=== PATIENT | male | born 1980 | race Two or more races ===

== ENCOUNTER → 2017-03-15 | Outpatient (CLI) | payer BC | END | disposition home or self-care (01) | LOC: HKI 14:24 | DX: M25.561 Pain in right knee (principal); M25.461 Effusion, right knee | CPT/HCPCS: 20610; 73564-50 ==

== ENCOUNTER → 2017-03-22 | Outpatient (CLI) | payer BC | END | disposition home or self-care (01) | LOC: HKI 13:15 | DX: M25.561 Pain in right knee (principal); R22.41 Localized swelling, mass and lump, right lower limb | CPT/HCPCS: G0463 ==

== ENCOUNTER → 2017-04-21 | Outpatient (CLI) | payer BC | END | disposition home or self-care (01) | LOC: HKI 14:37 | DX: S83.241A Other tear of medial meniscus, current injury, right knee, initial encounter (principal); X58.XXXA Exposure to other specified factors, initial encounter; Y92.89 Other specified places as the place of occurrence of the external cause; M25.561 Pain in right knee ==

== ENCOUNTER → 2017-05-05 | Outpatient (CLI) | payer BC | END | disposition home or self-care (01) | LOC: HKI 14:16 | DX: Z01.818 Encounter for other preprocedural examination (principal) | CPT/HCPCS: G0463 ==

== ENCOUNTER 2017-05-10 05:37 | Day surgery (SDC) | payer BC ==
[2017-05-10] MEDS: VANCOMYCIN 1 GM (PMX) 250 ML IVPB (06:29)
[2017-05-10] MEDS: LANSOPRAZOLE 30 MG CAP PO (06:31)
[2017-05-10] MEDS: ACETAMINOPHEN 1000MG/100ML IV 100 ML IVPB (06:31)
[2017-05-10] MEDS: LACTATED RINGER'S 1,000 ML IV (06:31)
[2017-05-10] MEDS: ONDANSETRON 4 MG INJ IV ×2 (06:31→09:41)
[2017-05-10] MEDS: CELECOXIB 200 MG CAP PO (06:31)
[2017-05-10] MEDS: DEXAMETHASONE 4 MG/ML 1 ML INJ IV (06:31)
[2017-05-10] MEDS ORDERED: PROPOFOL 20 ML ×2 (07:31→07:44)
[2017-05-10] MEDS ORDERED: MIDAZOLAM 1 MG/ML 2 ML INJ (07:31)
[2017-05-10] MEDS ORDERED: LIDOCAINE 2% (SDV) 5 ML INJ (07:31)
[2017-05-10] MEDS ORDERED: FENTAnyl 50 MCG/ML VIAL (07:43)
[2017-05-10] MEDS ORDERED: METOCLOPRAMIDE 10 MG INJ (07:51)
[2017-05-10] MEDS: LIDOCAINE 1%/EPI 30 ML INJ (07:59)
[2017-05-10] MEDS ORDERED: ACETAMINOPHEN 1000MG/100ML IV 100 ML (08:11)
[2017-05-10] MEDS ORDERED: FENTAnyl 50 MCG/ML VIAL IV ×3 (08:30)
[2017-05-10] MEDS ORDERED: HYDROmorphONE (0.2 MG/ML) 10ML SYG IV ×3 (08:30)
[2017-05-10] MEDS ORDERED: MEPERIDINE 25 MG INJ IV (08:30)
[2017-05-10] MEDS ORDERED: DIPHENHYDRAMINE 50 MG INJ IV (08:30)
[2017-05-10] MEDS ORDERED: PROCHLORPERAZINE 10 MG INJ IV (08:30)
[2017-05-10] MEDS: ROPIVACAINE 0.5 % 30 ML VIAL (08:48)
[2017-05-10] MEDS ORDERED: EPHEDrine SULFATE 50 MG/5 ML SYG (08:56)
[2017-05-10] MEDS ORDERED: ONDANSETRON 4 MG INJ IV (09:30)
[2017-05-10] MEDS ORDERED: morphine 10 MG INJ IV (09:30)
[2017-05-10] MEDS: HYDROCODONE/APAP (10/325) TAB PO (10:12)
== END 2017-05-10 10:35 | disposition home or self-care (01) ==
LOC: SDS 05:37
DX: S83.241D Other tear of medial meniscus, current injury, right knee, subsequent encounter (principal); X58.XXXD Exposure to other specified factors, subsequent encounter
CPT/HCPCS: 29870

== ENCOUNTER → 2017-05-18 | Outpatient (CLI) | payer BC | END | disposition home or self-care (01) | LOC: HKI 08:42 | DX: M25.561 Pain in right knee (principal); R20.0 Anesthesia of skin; Z96.651 Presence of right artificial knee joint ==

== ENCOUNTER → 2017-05-25 | Outpatient (CLI) | payer BC | END | disposition home or self-care (01) | LOC: HKI 09:40 | DX: Z47.89 Encounter for other orthopedic aftercare (principal); S83.241D Other tear of medial meniscus, current injury, right knee, subsequent encounter; M25.561 Pain in right knee; R22.41 Localized swelling, mass and lump, right lower limb ==

== ENCOUNTER → 2017-06-07 | Outpatient (CLI) | payer BC | END | disposition home or self-care (01) | LOC: HKI 14:38 | DX: M65.332 Trigger finger, left middle finger (principal) | CPT/HCPCS: 73130; 73130-LT ==

== ENCOUNTER → 2017-07-06 | Outpatient (CLI) | payer BC | END | disposition home or self-care (01) | LOC: HKI 10:24 | DX: Z47.89 Encounter for other orthopedic aftercare (principal) ==

== ENCOUNTER → 2017-08-03 | Outpatient (CLI) | payer BC | END | disposition home or self-care (01) | LOC: HKI 11:33 | DX: M25.561 Pain in right knee (principal) | CPT/HCPCS: 20610 ==

== ENCOUNTER → 2017-11-21 | Outpatient (CLI) | payer BC | END | disposition home or self-care (01) | LOC: HKI 14:11 | DX: M23.203 Derangement of unspecified medial meniscus due to old tear or injury, right knee (principal) | CPT/HCPCS: G0463 ==

== ENCOUNTER → 2017-12-05 | Outpatient (CLI) | payer BC | END | disposition home or self-care (01) | LOC: HKI 10:30 | DX: M25.561 Pain in right knee (principal); R22.41 Localized swelling, mass and lump, right lower limb | CPT/HCPCS: G0463 ==

== ENCOUNTER → 2018-06-07 | Emergency (ER) | payer BC ==
[2018-06-07 13:05] LABS: ADD MAN DIFF? NO
[2018-06-07 13:08] LABS: BASOPHILS % 0.7 % (0.0-2.0); EOSINOPHILS # 0.2 10^3/ul (0.0-0.5); EOSINOPHILS % 3.6 % (0.0-7.0); HEMATOCRIT 48.1 % (42.0-52.0); HEMOGLOBIN 15.6 g/dl (14.0-18.0); LYMPHOCYTES # 2.3 10^3/ul (0.8-2.9); LYMPHOCYTES % 39.4 % (15.0-51.0); MEAN CORPUSCULAR HEMOGLOBIN 27.1 pg (29.0-33.0); MEAN CORPUSCULAR HGB CONC 32.4 g/dl (32.0-37.0); MEAN CORPUSCULAR VOLUME 83.7 fl (82.0-101.0); MEAN PLATELET VOLUME 10.4 fl (7.4-10.4); MONOCYTE # 0.4 10^3/ul (0.3-0.9); NEUTROPHIL # 2.9 10^3/ul (1.6-7.5); PLATELET COUNT 224 10^3/UL (140-415); RED BLOOD COUNT 5.75 10^6/ul (4.70-6.10); RED CELL DISTRIBUTION WIDTH 13.2 % (11.5-14.5)
[2018-06-07 13:08] LABS: WHITE BLOOD COUNT 5.9 10^3/ul (4.8-10.8)
[2018-06-07 13:27] LABS: ALANINE AMINOTRANSFERASE 60 IU/L (13-69); ALBUMIN 4.7 g/dl (3.3-4.9); ALKALINE PHOSPHATASE 65 IU/L (42-121); ANION GAP 12 (5-13); ASPARTATE AMINO TRANSFERASE 40 IU/L (15-46); BILIRUBIN,INDIRECT 1.7 mg/dl (0-1.1); BILIRUBIN,TOTAL 1.7 mg/dl (0.2-1.3); BLOOD UREA NITROGEN 13 mg/dl (7-20); CALCIUM 10.1 mg/dl (8.4-10.2); CARBON DIOXIDE 29 mmol/L (21-31); CHLORIDE 104 mmol/L (97-110); CREATININE 0.97 mg/dl (0.61-1.24); Estimated GFR > 60 mL/min (>60); GLUCOSE 97 mg/dl (70-220); LIPASE 92 U/L (23-300); POTASSIUM 4.1 mmol/L (3.5-5.1); SODIUM 145 mmol/L (135-144); TOTAL PROTEIN 8.6 g/dl (6.1-8.1)
[2018-06-07 13:37] LABS: ADD UMIC NO; UR ASCORBIC ACID NEGATIVE (NEGATIVE); UR BILIRUBIN (Dip) NEGATIVE (NEGATIVE); UR BLOOD (Dip) NEGATIVE (NEGATIVE); UR CLARITY CLEAR (CLEAR); UR COLOR YELLOW (YELLOW); UR GLUCOSE (Dip) NEGATIVE (NEGATIVE); UR KETONES (Dip) NEGATIVE (NEGATIVE); UR LEUKOCYTE ESTERASE (Dip) NEGATIVE Leu/ul (NEGATIVE); UR NITRITE (Dip) NEGATIVE (NEGATIVE); UR TOTAL PROTEIN (Dip) NEGATIVE (NEGATIVE); UR UROBILINOGEN (Dip) NEGATIVE (NEGATIVE)
== END | disposition home or self-care (01) ==
LOC: FTE 11:28
DX: K29.70 Gastritis, unspecified, without bleeding (principal); A04.5 Campylobacter enteritis
CPT/HCPCS: 36415; 74176; 80053; 81003; 83690; 85025; 99284-25